=== PATIENT | male | born 1985 | race American Indian/Alaskan Native ===

== ENCOUNTER 2016-05-20 12:15 | Emergency (ER) | payer MEDICAID ==
[2016-05-20 14:45] LABS: Basophils % (Auto) 0.9 % (0.0-1.8); Hematocrit 40.2 % (35.5-45.6); Hemoglobin 12.8 gm/dl (11.8-15.2); Mean Corpuscular HGB Conc 32 % (32-34); Mean Corpuscular Hemoglobin 27 pg (28-32); Mean Corpuscular Volume 84 fl (84-94); Platelet Count 271 K/mm3 (140-440); Red Blood Count 4.76 M/mm3 (3.65-5.03); Red Cell Distribution Width 13.3 % (13.2-15.2); White Blood Count 7.2 K/mm3 (4.5-11.0)
[2016-05-20 14:49] LABS: Anion Gap 14 mmol/L; Blood Urea Nitrogen 9 mg/dL (9-20); Calcium 8.5 mg/dL (8.4-10.2); Carbon Dioxide 27 mmol/L (22-30); Chloride 103.3 mmol/L (98-107); Glucose 69 mg/dL (75-100); Potassium 3.7 mmol/L (3.6-5.0); Sodium 141 mmol/L (137-145)
[2016-05-20 15:35] LABS: Urine Drugs of Abuse Note Disclamer
[2016-05-20 15:45] LABS: Bacteria,Urine 1+ /HPF (Negative); Bilirubin,Urine NEG (Negative); Blood,Urine NEG (Negative); Ketones,Urine NEG (Negative); Leukocyte Esterase,Urine NEG (Negative); Mucus,Urine FEW /HPF; Nitrite,Urine NEG (Negative); Protein,Urine <15 mg/dL mg/dL (Negative); Urobilinogen,Urine < 2.0 mg/dL (<2.0); WBC,Urine < 1.0 /HPF (0.0-6.0)
--- NOTE | 2016-05-20 17:01 | Emergency Department Report ---
ED Psych HPI - General Chief Complaint: Psych Stated Complaint: SUICIDAL / DOING DRUGS Time Seen by Provider: 05/20/16 16:35 Source: patient Mode of arrival: Ambulatory Limitations: No Limitations - History of Present Illness Initial Comments: 31-year-old male presents to the emergency department complaining of suicidal thoughts. Patient states he has been smoking "some bad drugs." Symptoms have been present for 2 days. Patient denies plan. He has no previous history of suicide attempts. Patient reports a history of bipolar disorder and states he has been taking his medications. He denies auditory or visual hallucinations. There are no other complaints. MD Complaint: suicidal ideation -: Gradual, days(s) (2) Associated Psychiatric Symptoms: suicidal ideation History of same: No Quality: constant Improves With: none Worsens With: none Context: recent drug abuse Associated Symptoms: denies other symptoms Treatments Prior to Arrival: none If Self Harm: admits thoughts of - Related Data Home Medications Medication Instructions Recorded Confirmed Last Taken Olanzapine [ZyPREXA] 20 mg PO BID 05/20/16 05/20/16 Unknown Allergies Allergy/AdvReac Type Severity Reaction Status Date / Time No Known Allergies Allergy Unverified 05/20/16 13:08 ED Review of Systems ROS: Stated complaint: SUICIDAL / DOING DRUGS Other details as noted in HPI Comment: All other systems reviewed and negative Psychiatric: suicidal thoughts ED Past Medical Hx - Past Medical History Previous Medical History?: Yes Hx Psychiatric Treatment: Yes (BIPOLAR) - Surgical History Past Surgical History?: No - Family History Family history: no significant - Social History Smoking Status: Current Every Day Smoker Substance Use Type: Marijuana, Methamphetamines - Medications Home Medications: Home Medications Medication Instructions Recorded Confirmed Last Taken Type Olanzapine [ZyPREXA] 20 mg PO BID 05/20/16 05/20/16 Unknown History ED Physical Exam - General Limitations: No Limitations General appearance: alert, in no apparent distress - Head Head exam: Present: atraumatic, normocephalic - Eye Eye exam: Present: normal appearance, PERRL, EOMI - ENT ENT exam: Present: normal exam, normal orophraynx, mucous membranes moist - Neck Neck exam: Present: normal inspection, full ROM. Absent: tenderness - Respiratory Respiratory exam: Present: normal lung sounds bilaterally. Absent: respiratory distress - Cardiovascular Cardiovascular Exam: Present: regular rate, normal rhythm, normal heart sounds - GI/Abdominal GI/Abdominal exam: Present: soft, normal bowel sounds. Absent: distended, tenderness - Extremities Exam Extremities exam: Present: normal inspection, full ROM. Absent: tenderness - Back Exam Back exam: Present: normal inspection, full ROM. Absent: tenderness - Neurological Exam Neurological exam: Present: alert, oriented X3. Absent: motor sensory deficit - Skin Skin exam: Present: warm, dry, intact ED Course Vital Signs 05/20/16 13:09 Temperature 98.6 F Pulse Rate 76 Respiratory 18 Rate Blood Pressure 112/64 O2 Sat by Pulse 100 Oximetry - Reevaluation(s) Reevaluation #1: 05/20/16 17:00 Lab results reviewed. Patient has been medically cleared. Mental health evaluation pending at this time. Reevaluation #2: 05/20/16 20:37 Patient has been evaluated by mental health. Form 1013 has been signed and placed on the patient's chart. Patient is awaiting placement. ED Medical Decision Making - Lab Data Result diagrams: 05/20/16 14:15 05/20/16 14:15 - Differential Diagnosis drug abuse, suicidal thoughts, bipolar disorder Critical care attestation.: If time is entered above; I have spent that time in minutes in the direct care of this critically ill patient, excluding procedure time. ED Disposition Clinical Impression: Suicidal ideation Bipolar disorder with current episode depressed Qualifiers: Current episode severity: mild Qualified Code(s): F31.31 - Bipolar disorder, current episode depressed, mild Disposition: DC/TX PSY HOSP/PSY UNIT Is pt being admited?: No Condition: Stable Referrals: PRIMARY CARE [Primary Care Provider] - 3-5 Days Time of Disposition: 20:38
[2016-05-21] MEDS ORDERED: ALUM-MAG HYDROX-SIMETH 200-200-20MG/5ML PO PRN (13:51)
[2016-05-21] MEDS ORDERED: TYLENOL PO PRN (13:51)
[2016-05-21] MEDS ORDERED: MILK OF MAGNESIA PO PRN (13:51)
--- NOTE | 2016-05-21 13:51 | Emergency Department Report ---
Blank Doc - Documentation Documentation: Vital signs reviewed. Remained stable. Patient remains cooperative in the ED. Lab contacted regarding missing values in [facility] and they reported: sodium : 141, K 3.7, Chl 103.3 AG 14. Patient awaiting transport. I've restarted/ reconciled patient's home Zyprexa dose and diet ordered.
[2016-05-21] MEDS ORDERED: NON-FORMULARY (Olanzapine [Zyprexa] 20 MG) PO SCH (22:00)
[2016-05-23 08:34] VITALS: BP 130/74
== END 2016-05-23 13:36 ==
LOC: EEVIPCON 12:15 → ED 12:15
DX: R45.851 Suicidal ideations (principal); F31.31 Bipolar disorder, current episode depressed, mild; F17.200 Nicotine dependence, unspecified, uncomplicated; F12.90 Cannabis use, unspecified, uncomplicated
CPT/HCPCS: 36415; 80048; 80307; 81001; 85025; 99285; G0480; 80320

== ENCOUNTER 2016-06-23 16:59 | Emergency (ER) | payer MEDICAID ==
[2016-06-23 18:07] LABS: Urine Drugs of Abuse Note Disclamer
[2016-06-23 18:19] LABS: Bilirubin,Urine NEG (Negative); Blood,Urine NEG (Negative); Ketones,Urine NEG (Negative); Leukocyte Esterase,Urine NEG (Negative); Mucus,Urine FEW /HPF; Nitrite,Urine NEG (Negative); Protein,Urine <15 mg/dL mg/dL (Negative); WBC,Urine < 1.0 /HPF (0.0-6.0)
[2016-06-23 18:29] LABS: Basophils % (Auto) 0.9 % (0.0-1.8); Hematocrit 40.6 % (35.5-45.6); Mean Corpuscular HGB Conc 32 % (32-34); Mean Corpuscular Hemoglobin 27 pg (28-32); Mean Corpuscular Volume 84 fl (84-94); Platelet Count 296 K/mm3 (140-440); Red Blood Count 4.84 M/mm3 (3.65-5.03); Red Cell Distribution Width 13.2 % (13.2-15.2); White Blood Count 8.2 K/mm3 (4.5-11.0)
[2016-06-23 19:25] LABS: Anion Gap 18 mmol/L; BUN/Creatinine Ratio 17.27; Blood Urea Nitrogen 19 mg/dL (9-20); Calcium 9.1 mg/dL (8.4-10.2); Carbon Dioxide 26 mmol/L (22-30); Chloride 97.5 mmol/L (98-107); Glucose 92 mg/dL (75-100); Potassium 4.1 mmol/L (3.6-5.0); Sodium 137 mmol/L (137-145)
--- NOTE | 2016-06-24 00:43 | Emergency Department Report ---
ED Psych HPI - General Chief Complaint: Psych Stated Complaint: MENTAL EVALULATION/SUICIDE IDEATIONS/HEARING VOICE Time Seen by Provider: 06/23/16 23:39 Source: patient Mode of arrival: Ambulatory Limitations: No Limitations - History of Present Illness Initial Comments: 31-year-old male with a past medical history of bipolar presents to the hospital complaints of suicidal ideation and hallucinations. Symptoms ongoing for 1 week to 1 month. Patient is suicidal without plan. He denies any inciting factors. He states he is not taking his medication "a while" and cannot give me any further details regarding the timeframe. Patient's hearing voices that are telling him stressful things and plus he is having sort hallucinations as well. Patient is disheveled with poor hygiene denies being homeless. No physical complaints of pain reported. - Related Data Home Medications Medication Instructions Recorded Confirmed Last Taken Olanzapine [ZyPREXA] 20 mg PO BID 05/20/16 05/20/16 Unknown Allergies Allergy/AdvReac Type Severity Reaction Status Date / Time No Known Allergies Allergy Unverified 05/20/16 13:08 ED Review of Systems ROS: Stated complaint: MENTAL EVALULATION/SUICIDE IDEATIONS/HEARING VOICE Other details as noted in HPI Comment: All other systems reviewed and negative Other: Constitutional: No fevers chills Eyes: No eye pain visual changes ENT: No ear pain or throat pain Neck: Denies pain Respiratory: Denies cough wheezing shortness of breath Cardiovascular: Denies chest pain, palpitations, syncope GI: Denies abdominal pain : Denies dysuria Musculoskeletal: Denies back pain Skin: Denies rash, lesions, erythema Neurologic: Denies headache, numbness, weakness Psychiatric: as per hpi ED Past Medical Hx - Past Medical History Previous Medical History?: Yes Hx Psychiatric Treatment: Yes (BIPOLAR) Additional medical history: [place] - Surgical History Past Surgical History?: No - Social History Smoking Status: Current Every Day Smoker Substance Use Type: None - Medications Home Medications: Home Medications Medication Instructions Recorded Confirmed Last Taken Type Olanzapine [ZyPREXA] 20 mg PO BID 05/20/16 05/20/16 Unknown History ED Physical Exam - General Limitations: No Limitations - Other Other exam information: General: Disheveled poor hygiene Head exam: Atraumatic, normocephalic Eyes exam: Normal appearance, pupils equal reactive to light, extraocular movements intact ENT: Moist mucous membrane, normal oropharynx Neck exam: Normal inspection, full range of motion, no meningismus nontender Respiratory exam: Clear to auscultation bilateral, no wheezes, rales, crackles Cardiovascular: Normal rate and rhythm, normal heart sounds Abdomen: Soft, nondistended, and nontender, with normal bowel sounds, no rebound, or guarding Extremity: Full range of motion normal inspection no deformity Back: Normal Inspection, full range of motion, no tenderness Neurologic: Alert, oriented x3, cranial nerves intact, no motor or sensory deficit Psychiatric: normal affect, normal mood Skin: Warm, dry, intact ED Course Vital Signs 06/23/16 17:11 Temperature 98.2 F Pulse Rate 92 H Respiratory 16 Rate Blood Pressure 102/55 O2 Sat by Pulse 99 Oximetry - Reevaluation(s) Reevaluation #1: 06/24/16 01:40 pt stable and cooperative - Consultations Consultation #1: 06/24/16 01:40 MH eval pending ED Medical Decision Making - Lab Data Result diagrams: 06/23/16 18:15 06/23/16 18:15 Lab Results 06/23/16 06/23/16 06/23/16 Range/Units 17:52 17:52 18:15 WBC (4.5-11.0) K/mm3 RBC (3.65-5.03) M/mm3 Hgb (11.8-15.2) gm/dl Hct (35.5-45.6) % MCV (84-94) fl MCH (28-32) pg MCHC (32-34) % RDW (13.2-15.2) % Plt Count (140-440) K/mm3 Lymph % (Auto) (13.4-35.0) % [place] % (Auto) (0.0-7.3) % Eos % (Auto) (0.0-4.3) % Baso % (Auto) (0.0-1.8) % Lymph # (1.2-5.4) K/mm3 Hinds # (0.0-0.8) K/mm3 Eos # (0.0-0.4) K/mm3 Baso # (0.0-0.1) K/mm3 Seg Neutrophils % (40.0-70.0) % Seg Neutrophils # (1.8-7.7) K/mm3 Sodium 137 (137-145) mmol/L Potassium 4.1 (3.6-5.0) mmol/L Chloride 97.5 L (98-107) mmol/L Carbon Dioxide 26 (22-30) mmol/L Anion Gap 18 mmol/L BUN 19 (9-20) mg/dL Creatinine 1.1 (0.8-1.5) mg/dL Estimated GFR > 60 ml/min BUN/Creatinine Ratio 17.27 % Glucose 92 (75-100) mg/dL Calcium 9.1 (8.4-10.2) mg/dL Urine Color Yellow (Yellow) Urine Turbidity Clear (Clear) Urine pH 6.0 (5.0-7.0) Ur Specific [place] 1.029 (1.003-1.030) Urine Protein <15 mg/dl (Negative) mg/dL Urine Glucose (UA) Neg (Negative) mg/dL Urine Ketones Neg (Negative) mg/dL Urine Blood Neg (Negative) Urine Nitrite Neg (Negative) Urine Bilirubin Neg (Negative) Urine Urobilinogen 2.0 (<2.0) mg/dL Ur Leukocyte Esterase Neg (Negative) Urine WBC (Auto) < 1.0 (0.0-6.0) /HPF Urine RBC (Auto) 1.0 (0.0-6.0) /HPF Urine Mucus Few /HPF Urine Opiates Screen Presumptive negative Urine Methadone Screen Presumptive negative Ur Barbiturates Screen Presumptive negative Ur Phencyclidine Scrn Presumptive negative Ur Amphetamines Screen Presumptive negative U Benzodiazepines Scrn Presumptive negative Urine Cocaine Screen Presumptive negative U Marijuana (THC) Screen Presumptive positive Drugs of Abuse Note Disclamer Plasma/Serum Alcohol (0-0.07) gm% 06/23/16 06/23/16 Range/Units 18:15 18:15 WBC 8.2 (4.5-11.0) K/mm3 RBC 4.84 (3.65-5.03) M/mm3 Hgb 13.0 (11.8-15.2) gm/dl Hct 40.6 (35.5-45.6) % MCV 84 (84-94) fl MCH 27 L (28-32) pg MCHC 32 (32-34) % RDW 13.2 (13.2-15.2) % Plt Count 296 (140-440) K/mm3 Lymph % (Auto) 33.1 (13.4-35.0) % Hind[place] % (Auto) 9.3 H (0.0-7.3) % Eos % (Auto) 2.0 (0.0-4.3) % Baso % (Auto) 0.9 (0.0-1.8) % Lymph # 2.7 (1.2-5.4) K/mm3 Hinds # 0.8 (0.0-0.8) K/mm3 Eos # 0.2 (0.0-0.4) K/mm3 Baso # 0.1 (0.0-0.1) K/mm3 Seg Neutrophils % 54.7 (40.0-70.0) % Seg Neutrophils # 4.5 (1.8-7.7) K/mm3 Sodium (137-145) mmol/L Potassium (3.6-5.0) mmol/L Chloride (98-107) mmol/L Carbon Dioxide (22-30) mmol/L Anion Gap mmol/L BUN (9-20) mg/dL Creatinine (0.8-1.5) mg/dL Estimated GFR ml/min BUN/Creatinine Ratio % Glucose (75-100) mg/dL Calcium (8.4-10.2) mg/dL Urine Color (Yellow) Urine Turbidity (Clear) Urine pH (5.0-7.0) Ur Specific [place] (1.003-1.030) Urine Protein (Negative) mg/dL Urine Glucose (UA) (Negative) mg/dL Urine Ketones (Negative) mg/dL Urine Blood (Negative) Urine Nitrite (Negative) Urine Bilirubin (Negative) Urine Urobilinogen (<2.0) mg/dL Ur Leukocyte Esterase (Negative) Urine WBC (Auto) (0.0-6.0) /HPF Urine RBC (Auto) (0.0-6.0) /HPF Urine Mucus /HPF Urine Opiates Screen Urine Methadone Screen Ur Barbiturates Screen Ur Phencyclidine Scrn Ur Amphetamines Screen U Benzodiazepines Scrn Urine Cocaine Screen U Marijuana (THC) Screen Drugs of Abuse Note Plasma/Serum Alcohol < 0.01 (0-0.07) gm% - Medical Decision Making 1013 and transferred form signed. I would continue patient's last known medication but Zyprexa requires special clearance from the pharmacy. Pt has been noncompliant. Patient will be started on an alternative anti-psychotic empirically while in the ED pending psychiatric evaluation and transfer - Differential Diagnosis suicidal, psychosis, medication noncompliance Critical Care Time: No Critical care attestation.: If time is entered above; I have spent that time in minutes in the direct care of this critically ill patient, excluding procedure time. ED Disposition Clinical Impression: Suicidal ideation, Psychosis, Noncompliance with medication regimen, Bipolar disorder, Medical clearance for psychiatric admission Disposition: DC/TX PSY HOSP/PSY UNIT Is pt being admited?: No Does the pt Need Aspirin: No Condition: Stable Time of Disposition: 01:42 (awaiting acceptance)
[2016-06-24 11:03] VITALS: BP 111/66
--- NOTE | 2016-06-24 12:06 | Consultation ---
History of Present Illness - Reason for Consult Consult date: 06/24/16 Reason for consult: suicidal ideation - Chief Complaint Chief complaint: Elina Fitch is a 31 year old black male seen for psychiatric consultation in the ER. He states "I come here sometimes." He is a poor historian and gave vague answers to most questions. He reports living in the [place] nursing home for the past 2 months. He reports a history of bipolar disorder and anger outbursts. He states he's been in a few hospitals before. He also reports he was living with his mother before the nursing home. He states he is depressed and is suicidal. She denies suicide attempts. He does report auditory hallucinations but is unable to describe them. No homicidal ideation. Unknown when his last manic episode was. He denies drugs or alcohol but he was positive for marijuana in his urine drug screen. Per the record he was in the emergency department 05/20/2016 for complaints of "bad drugs." He was on 1013 and at that time. He remembers receiving [employer] and believes he had this month. Although this cannot be confirmed. Medications and Allergies Allergies Allergy/AdvReac Type Severity Reaction Status Date / Time No Known Allergies Allergy Unverified 05/20/16 13:08 Home Medications Medication Instructions Recorded Confirmed Last Taken Type Olanzapine [ZyPREXA] 20 mg PO BID 05/20/16 06/24/16 Unknown History Past psychiatric history - Past Medical History Past Medical History: other (glaucoma) - past Psychiatric treatment and history Psych: Bipolar - Social History Social history: smoking, other (lives in a nursing home. Single, no children) Mental Status Exam - Vital signs Last Vital Signs Temp 99.8 F H 06/24/16 11:02 Pulse 76 06/24/16 11:02 Resp 18 06/24/16 11:02 BP 111/66 06/24/16 11:02 Pulse Ox 97 06/24/16 11:02 - Exam Narrative exam: endorses suicidal ideation and auditory hallucinations Orientation: time, place, person Affect: depressed Mood: congruent with affect Thought content: paranoia Thought Process: Intact Perceptions: auditory Speech: slow Concentration: distractible Motor activity: normal Level of consciousness: alert Sleep Symptoms: None Interaction: guarded Results Result Diagrams: 06/23/16 18:15 06/23/16 18:15 Abnormal lab results 06/23/16 06/23/16 Range/Units 18:15 18:15 MCH 27 L (28-32) pg [place] % (Auto) 9.3 H (0.0-7.3) % Chloride 97.5 L (98-107) mmol/L All other labs normal. Assessment and Plan Assessment and plan: Impression: Bipolar disorder, current episode depressed vs. schizoaffective disorder, bipolar type Worsening psychotic and mood symptoms. Extent of psychosocial stressors are unknown. Recommendation: Continue 1013 and transfer to inpatient psychiatric facility - Psychiatric problem (1) Bipolar disorder Status: Acute Qualifiers: Active/Remission status: A Current bipolar episode type: depressed Current episode severity: C Psychotic features: with psychotic features Most recent bipolar episode type: M Qualified Code(s): F31.5 - Bipolar disorder, current episode depressed, severe, with psychotic features
== END 2016-06-24 14:07 ==
LOC: ED 16:59 → EEVIPCON 16:59 → ED 06-24 14:07
DX: F29 Unspecified psychosis not due to a substance or known physiological condition (principal); F31.9 Bipolar disorder, unspecified; R45.851 Suicidal ideations; F17.200 Nicotine dependence, unspecified, uncomplicated; Z91.14 Patient's other noncompliance with medication regimen
CPT/HCPCS: 36415; 80048; 80307; 81001; 85025; 99285; G0480; 80320

== ENCOUNTER 2016-07-08 22:10 | Emergency (ER) | payer MEDICAID ==
--- NOTE | 2016-07-09 01:37 | Emergency Department Report ---
HPI - General Chief Complaint: Psych Time Seen by Provider: 07/09/16 00:42 - HPI HPI: This is a 31-year-old Afro-Maldivian male presents the emergency Department via PD, but he says he called, due to suicidal ideations. Patient denies any homicidal ideations. He has no plan as to how he would hurt himself. He denies any visual hallucinations but does admit to some auditory hallucinations. He does not say that these voices are telling him to do anything inappropriate are affecting him in any way at the time. He has a history of bipolar disorder for which she usually is on Zyprexa but he has been out of that medication for "a little while." He does not have a primary care doctor or psychiatrist. ED Past Medical Hx - Past Medical History Hx Psychiatric Treatment: Yes (BIPOLAR) Additional medical history: [place]ac[place] - Social History Smoking Status: Current Every Day Smoker Substance Use Type: None - Medications Home Medications: Home Medications Medication Instructions Recorded Confirmed Last Taken Type Olanzapine [ZyPREXA] 20 mg PO BID 05/20/16 06/24/16 Unknown History ED Review of Systems ROS: Stated complaint: SUICIDAL/MH EVAL Other details as noted in HPI Comment: All other systems reviewed and negative Constitutional: denies: chills, fever Eyes: denies: eye pain, eye discharge, vision change ENT: denies: ear pain, throat pain Respiratory: denies: cough, shortness of breath, wheezing Cardiovascular: denies: chest pain, palpitations Gastrointestinal: denies: abdominal pain, nausea, diarrhea Genitourinary: denies: urgency, dysuria Musculoskeletal: denies: back pain, joint swelling, arthralgia Skin: denies: rash, lesions Neurological: denies: headache, weakness, paresthesias Psychiatric: auditory hallucinations, suicidal thoughts. denies: visual hallucinations, homicidal thoughts Physical Exam - Physical Exam Vital Signs: Vital Signs 07/08/16 22:42 Temperature 98.8 F Pulse Rate 73 Respiratory 18 Rate Blood Pressure 118/72 O2 Sat by Pulse 100 Oximetry Physical Exam: GENERAL: The patient is well-developed well-nourished. HEENT: Normocephalic. Atraumatic. Extraocular motions are intact. Patient has moist mucous membranes. Pupils equal reactive to light bilaterally. NECK: Supple. Trachea is midline. CHEST/LUNGS: Clear to auscultation. There is no respiratory distress noted. HEART/CARDIOVASCULAR: Regular. There is no tachycardia. There is no gallop rub or murmur. ABDOMEN: Abdomen is soft, nontender. Patient has normal bowel sounds. There is no abdominal distention. SKIN: Skin is warm and dry. NEURO: The patient is awake, alert, and oriented. The patient is cooperative. The patient has no focal neurologic deficits. The patient has normal speech. MUSCULOSKELETAL: There is no tenderness or deformity. There is no limitation range of motion. There is no evidence of acute injury. PSYCH: Patient has a flat affect. ED Course Vital Signs 07/08/16 22:42 Temperature 98.8 F Pulse Rate 73 Respiratory 18 Rate Blood Pressure 118/72 O2 Sat by Pulse 100 Oximetry ED Medical Decision Making - Lab Data Result diagrams: 07/09/16 01:27 07/09/16 01:27 - Medical Decision Making 31-year-old male presents the emergency department with some suicidal ideations and depression. He does not have a plan. Patient has not left any urine at this point but otherwise his blood work has been unremarkable. There is no signs of infection, electrolyte abnormalities, renal insufficiency, glucose abnormalities. Blood alcohol levels negative. The patient has been made a 1013 secondary to his suicidal ideations and will need psychiatric evaluation if not inpatient psychiatric admission. The crisis service has been contacted to assist with placement. - Differential Diagnosis schizophrenia, bipolar disorder, schizoaffective, substance abuse, depressi Critical Care Time: No Critical care attestation.: If time is entered above; I have spent that time in minutes in the direct care of this critically ill patient, excluding procedure time. ED Disposition Clinical Impression: Suicidal ideations Disposition: DC/TX PSY HOSP/PSY UNIT Is pt being admited?: No Condition: Stable Time of Disposition: 05:33
[2016-07-09 02:00] LABS: Hematocrit 39.5 % (35.5-45.6); Hemoglobin 12.9 gm/dl (11.8-15.2); Mean Corpuscular HGB Conc 33 % (32-34); Mean Corpuscular Hemoglobin 27 pg (28-32); Mean Corpuscular Volume 83 fl (84-94); Platelet Count 280 K/mm3 (140-440); Red Blood Count 4.75 M/mm3 (3.65-5.03); Red Cell Distribution Width 13.4 % (13.2-15.2); White Blood Count 10.3 K/mm3 (4.5-11.0)
[2016-07-09 02:18] LABS: Anion Gap 17 mmol/L; Blood Urea Nitrogen 9 mg/dL (9-20); Calcium 9.1 mg/dL (8.4-10.2); Carbon Dioxide 25 mmol/L (22-30); Glucose 82 mg/dL (75-100); Sodium 139 mmol/L (137-145)
[2016-07-09 03:35] LABS: Basophils % (Manual) 0 % (0.0-1.8); Blastocytes % (Manual) 0 %; Diff Status Complete; Eosinophils % (Manual) 0 % (0.0-4.3); Platelet Estimate Consistent w Auto; RBC Morphology Normal
[2016-07-09 08:14] VITALS: BP 112/60
== END 2016-07-09 16:25 ==
LOC: EEVIPCON 22:10 → ED 22:10
DX: R45.851 Suicidal ideations (principal); F31.9 Bipolar disorder, unspecified; F17.200 Nicotine dependence, unspecified, uncomplicated
CPT/HCPCS: 36415; 80048; 85007; 85025; 93005; 93010; 99285; G0480; 80320

== ENCOUNTER → 2016-07-08 | Emergency (ER) | payer MEDICAID ==
[2016-07-08 12:05] VITALS: BP 131/93
[2016-07-08 12:40] LABS: Urine Drugs of Abuse Note Disclamer
[2016-07-08 12:53] LABS: Bilirubin,Urine NEG (Negative); Blood,Urine NEG (Negative); Ketones,Urine NEG (Negative); Leukocyte Esterase,Urine NEG (Negative); Mucus,Urine FEW /HPF; Nitrite,Urine NEG (Negative); Protein,Urine <15 mg/dL mg/dL (Negative); Urobilinogen,Urine < 2.0 mg/dL (<2.0)
[2016-07-08 15:32] LABS: Basophils % (Auto) 0.5 % (0.0-1.8); Eosinophils % (Auto) 0.2 % (0.0-4.3); Hematocrit 40.8 % (35.5-45.6); Hemoglobin 13.1 gm/dl (11.8-15.2); Mean Corpuscular HGB Conc 32 % (32-34); Mean Corpuscular Hemoglobin 27 pg (28-32); Mean Corpuscular Volume 83 fl (84-94); Platelet Count 297 K/mm3 (140-440); Red Blood Count 4.92 M/mm3 (3.65-5.03); Red Cell Distribution Width 13.3 % (13.2-15.2); White Blood Count 12.2 K/mm3 (4.5-11.0)
[2016-07-08 15:39] LABS: Anion Gap 15 mmol/L; BUN/Creatinine Ratio 8.18; Blood Urea Nitrogen 9 mg/dL (9-20); Calcium 9.1 mg/dL (8.4-10.2); Carbon Dioxide 26 mmol/L (22-30); Chloride 99.2 mmol/L (98-107); Glucose 91 mg/dL (75-100); Potassium 3.9 mmol/L (3.6-5.0); Sodium 136 mmol/L (137-145)
== END ==
LOC: EEVIPCON 11:52 → ED 11:52
DX: R45.851 Suicidal ideations (principal); F31.9 Bipolar disorder, unspecified; F12.90 Cannabis use, unspecified, uncomplicated; Z53.21 Procedure and treatment not carried out due to patient leaving prior to being seen by health care provider
CPT/HCPCS: 36415; 80048; 80307; 81001; 85025; G0480; 80320